=== PATIENT | female | born 1960 | race Caucasian/White ===

== ENCOUNTER 2025-08-21 17:22 | Emergency (ER) | payer BC, MEDICARE, SELFPAY ==
--- NOTE | 2025-08-21 17:25 | ED_ITS ---
HPI - Wound/Laceration General Chief Complaint: Animal Bite Stated Complaint: Cat Bite Time Seen by Provider: 08/21/25 17:24 Source: patient Mode of arrival: ambulatory Limitations: no limitations History of Present Illness HPI narrative: Patient is a 64-year-old female who presents with cat bite to right medial lower leg along with cat scratch to lateral lower leg. It happened at 6:00 a.m. today. Patient's cat was fighting with a neighbor cat and bit patient. Patient is not up-to-date on tetanus shot. Cat is up-to-date. Patient washed wound with soap and water Related Data Home Medications ?Medication ?Instructions ?Recorded ?Confirmed ?Last Taken ?Type amlodipine 5 mg tablet mg 08/21/25 Unknown History duloxetine 60 mg capsule,delayed mg PO 08/21/25 Unkno wn History release esomeprazole magnesium 40 mg mg 08/21/25 Unknown Hist ory capsule,delayed release fluticasone propionate 50 intranasal 08/21/25 Unknown History mcg/actuation nasal spray,suspension gabapentin 300 mg capsule mg 08/21/25 Unknown History pravastatin 40 mg tablet mg 08/21/25 Unknown History trazodone 100 mg tablet mg 08/21/25 Unknown History valsartan 320 mg tablet mg 08/21/25 Unknown History Allergies Allergy/AdvReac Type Severity Reaction Status Date / Time No Known Allergies Allergy Verified 08/21/25 17:47 Review of Systems 2 Review of Systems: All systems reviewed & are unremarkable except as noted in HPI and below Constitutional: Constitutional: Denies body ache(s), Denies chills, Denies fatigue, Denies fever(s), Denies headache(s), Denies malaise and Denies weakness Eyes: Eyes: Denies blurry vision, Denies irritation and Denies loss of vision ENT: Denies otalgia, Denies headache(s), Denies nasal discharge, Denies sinus pain and Denies sore throat Cardiovascular: Cardiovascular: Denies chest pain, Denies irregular heart rhythm and Denies dyspnea Respiratory: Respiratory: Denies dyspnea Gastrointestinal: Gastrointestinal: Denies abdominal pain, Denies melena, Denies hematochezia, Denies diarrhea, Denies nausea and Denies vomiting Musculoskeletal: Musculoskeletal: Denies back pain, Denies myalgias and Denies arthralgias Integumentary/Breasts: Skin/Breast: Denies pruritus, Denies rash and Reports wounds Neurologic: Denies headache(s), Denies loss of vision and Denies weakness Psychiatric: Psychiatric: Reports no additional psychiatric complaints Endocrine: Endocrine: Denies fatigue PMFSH Comments At time of signature, agree with nursing past medical, surgical, social and family history. There is no relevant family history pertinent to the presenting complaint. Exam 2 Const: General: cooperative, healthy appearing, comfortable, no acute distress and well nourished Nutritional Appearance: well nourished O rientation/consciousness: patient oriented x3 Limitations: no limitations HENMT: Head: normal to inspection, normocephalic and atraumatic Ears: h earing grossly normal bilaterally and external ears normal Face/Nose/Sinus: N ormal external nose present, normal facial exam and face symmetric Face and sinus: normal facial exam and face symmetric Mouth: Yes lip normal Eyes: General: appearance normal, both eyes and all related structures A lignment and Position: alignment normal and position normal Periorbital: p eriorbital findings normal Eyelids: eyelids normal Pupils: Equal, round and reactive pupils present EOM: EOMs intact bilaterally Neck: Neck: normal visual inspection, full ROM and supple Chest: Chest palpation & inspection: normal inspection of the chest Resp: Effort & Inspection: normal respiratory effort and able to speak in complete sentences Auscultation: clear to auscultation bilaterally Cardio: Rate: regular rate Rhythm: regular rhythm Heart sounds: S1 normal heart sound present and S2 normal heart sound present GI: Inspection: normal to inspection Skin: General skin exam: normal color and no rashes or lesions noted Full body images: 1. 10 cm scratch that is scabbed with no surrounding erythema 2. 4 puncture guadarrama from bite with no castillo rrounding erythema. one with a 2.5 cm abrasion Neuro: General: patient oriented x3 and moves all extremities Cranial nerves: Yes Equal, round and reactive pupils present Speech: normal speech Gait exam (Neuro): Normal gait present Extrem: General: normal to inspection, full ROM and no edema Psych: Appearance: grossly normal and well kempt Mental Status: mental status grossly normal Speech and movement: Normal speech and movement present Affect: normal affect Attitude: cooperative Thought process: Normal thought process present Course Course Emergency Course: Patient is aware of diagnosis, understands and agrees to treatment plan. Anticipatory guidance given. Patient agrees to follow-up as directed and is aware of reasons to seek care at the emergency department. Portions of this record may have been created with voice recognition software Level of Care: Express Care Visit Vital Signs Vital signs: Reviewed MDM - Wound/Laceration MDM Narrative Medical decision making narrative: Tetanus shot updated. Will cover with antibiotics Pt well hydrated appearing, in no respiratory distress, hemodynamically stable. Recommend supportive care. The patient is stable at time of discharge the clinical impression was discussed and the patient was given the opportunity to ask questions, which were addressed as completely as possible given the information available at present. Anticipatory guidance and return to care precautions were discussed and the importance of primary care follow-up was stressed and encouraged. The patient voiced understanding of the plan, indications to return, and the need for follow-up. Exam findings show no acute concerns or changes Patient is appropriate for outpatient treatment and follow-up. Differential Diagnosis Differential diagnosis: Likely laceration, abrasion and other (Cat bite) Discharge Plan Discharge Clinical Impression: Cat bite Patient Disposition: Home Condition: Stable Instructions: Diphtheria/Acellular Pertussis/Tetanus Booster Vaccine (By injection), Animal Bite (ED) Additional Instructions: Clean with soap and water only; Avoid using alcohol and peroxide. Keep covered during the day. Use Bactroban antibiotic daily. Elevate the affected area if possible Alternate Tylenol/ibuprofen for as needed for pain Acetaminophen(Tylenol) 650- 1000mg every 4-6hours with max of 4000mg/day. Nonsteroidal anti-inflammatory agent (NSAIDs-ibuprofen): 400mg every 4-6hours with max 2400mg/day Apply moist heat 3-4 times daily for 10-15 minutes. Take antibiotic until it's gone. Please schedule a follow up visit with your personal physician for further evaluation and treatment within 3-5days OR if your symptoms persist, change or worsen significantly before you can contact your personal physician then please, without delay, go to the emergency department for further evaluation. If you experience any worsening redness, swelling, streaking (red lines), fever or chills please go to the ER LYour blood pressure was elevated above 120/80 today at Urgent Care. This puts you above the threshold for follow up visit with a primary care provider. High blood pressure does not usually cause any symptoms, however it may lead to kidney failure, stroke, heart disease just to name a few if untreated . Many people are anxious when seeing a provider or nurse. As a result, you are not diagnosed with hypertension at this time unless your blood pressure is persistently high at two office visits at least one week apart. Some things that can help lower blood pressure are lifestyle modifications, such as light exercise, decreased salt in diet, and weight loss. It is important to follow up with a PCP about this within 1 week. Patient Language: Khmer Prescriptions: New mupirocin 2 % ointment 1 applic topical BID Qty: 15 0RF amoxicillin-pot clavulanate 875-125 mg tablet 1 tablet PO Q12H 10 Days Qty: 20 0RF No Action pravastatin 40 mg tablet amlodipine 5 mg tablet trazodone 100 mg tablet esomeprazole magnesium 40 mg capsule,delayed release(DR/EC) valsartan 320 mg tablet gabapentin 300 mg capsule fluticasone propionate 50 mcg/actuation spray,suspension INTRANASAL duloxetine 60 mg capsule,delayed release(DR/EC) PO Follow-up/Referrals: Lenard,Edd Mendoza Jr., MD [Primary Care Provider, Unknown] - 3 Days Time of Disposition: 17:51
[2025-08-21 17:39] VITALS: BP 155/91; PULSE 77; RESP 16; TEMP 36.1; O2SAT 94
[2025-08-21] MEDS: TETANUS,DIPHTHERIA,AC PERTUSSIS ADULT (0.5 ML) BOOSTRIX IM (17:52)
--- OUTSIDE RECORDS SUMMARY | 2025-08-21 18:00 | XMS_ITS | Clinical Summary ---
Author Organization [facility] Address [address] [place] [address] Phone Care Team Providers Care Shirt Folder Name Role Phone Zac Hughes DO Primary Care Provider [phone] Allergies No known active allergies Medications albuterol HFA 90 mcg inhaler Take 2 Puffs by inhalation every 6 hours as needed for Shortness of Breath. Active ALPRAZolam (XANAX) 1 mg tabletIndicatio ns:Anxiety state Take 1 Tablet (1 mg) by mouth 1 time daily as needed for Anxiety. 30 Tablet 9 Active lorcaserin (BELVIQ) 10 mg TabletIndicatio ns:Obesity (BMI 30.0-34.9) Take 10 mg by mouth 2 times daily. 60 Tablet 2 9 Active promethazine-ph enyleph-codeine (PHENERGAN VC w/COD) 6.25-5-10 mg/5 mL Syrup Take 5 mL by mouth every 6 hours as needed for Cough. 60 mL 9 Active valsartan-hydro CHLOROthiazide (DIOVAN HCT) 320-12.5 mg tablet TAKE 1 TABLET BY MOUTH EVERY DAY 90 Tablet 3 9 Active traMADol (ULTRAM) 50 mg tabletIndicatio ns:Lumbosacral disc herniation TAKE 1 TABLET BY MOUTH EVERY 4-6 HOURS NEEDED 60 Tablet 5 9 Active pravastatin (PRAVACHOL) 40 mg tablet TAKE 1 TABLET BY MOUTH EVERY DAY 90 Tablet 3 9 Active traZODone (DESYREL) 100 mg tablet TAKE 1 TABLET BY MOUTH AT BEDTIME 90 Tablet 2 9 Active pantoprazole (PROTONIX) 40 mg Tablet, Delayed Release (E.C.) TAKE 1 TABLET BY MOUTH EVERY DAY 30 Tablet 9 Active gabapentin (NEURONTIN) 600 mg tablet TAKE 1 TABLET BY MOUTH THREE TIMES A DAY 270 Tablet 1 9 Active azithromycin (ZITHROMAX) 250 mg tablet Take 2 tablets by mouth the first day and 1 tablet days 2-5. 6 Tablet 0 Active fluticasone propionate (FLONASE) 50 mcg/spray Wheeler, Suspension nasal inhaler Administer 1 Wheeler in each nostril daily. Needs Appointment Prior to next refill 48 mL 0 Active DULoxetine (CYMBALTA) 60 mg Capsule, Delayed Release(E.C.) Take 1 Capsule (60 mg) by mouth daily. Needs Appointment Prior to Next Refill 90 Capsule 0 Active Active Problems Problem Noted Date Diagnosed Date Essential hypertension, benign 01/03/2019 Lumbosacral disc herniation 03/25/2017 Mixed hyperlipidemia Depression Low back pain IBS (irritable bowel syndrome) Immunizations Immunization Administration Dates Next Due (ADACEL/BOOSTRIX)(10 YR UP) TDAP VACCINE, 0.5ML, IM 09/04/2016 (SHINGRIX)(50 YRS UP) ZOSTER VACCINE RECOMBINANT, 0.5 ML, IM 07/29/2020 INFLUENZA VACCINE QUADRIVALE NT 6 MOS UP CELL DERIVED IM 09/20/2018 INFLUENZA VACCINE QUADRIVALE NT 6 MOS UP CELL DERIVED PF IM 09/20/2019 INFLUENZA VACCINE QUADRIVALENT 6 MOS UP PF IM Influenza Seasonal Unspecified Formulation IM ,09/20/2018 Influenza Vaccine 18+ C.derived Pf Im 07/29/2020 Family History Medical History Relation Name Comments Healthy Brother Healthy Daughter Other Father Parkinson's Disease Father Breast Cancer Mother Diabetes Mother Heart Disease Mother Other Mother Breast Cancer Sister 1 Healthy Sister 2 Healthy Son Relation Name Status Comments Brother Alive Daughter Alive Father (Age 87) Mother (Age 69) Sister 1 Alive Sister 2 Alive Son Alive Social History Tobacco Use Types Packs/Day Years Used Date Smoking Tobacco: Never Alcohol Use Standard Drinks/Week Comments No 0 (1 standard drink = 0.6 oz pur e alcohol) Comments No Sex and Gender Information Value Date Recorded Sex Assigned at Not on file Legal Sex Female 1:39 PM CDT Gender Identity Not on file Sexual Orientation Not on file Last Filed Vital Signs Vital Sign Reading Time Taken Comments Blood Pressure 120/82 01/03/2019 3:41 PM CDT Pulse 72 01/03/2019 3:41 PM CDT Temperature 36.6 C (97.8 F) 03/25/2017 2:18 PM CDT Respiratory Rate 16 01/03/2019 3:41 PM CDT Oxygen Saturation 93% 03/25/2017 3:55 PM CDT Inhaled Oxygen Concentration - - Weight 82.1 kg (181 lb) 01/03/2019 3:41 PM CDT Height 165.1 cm (5' 5) 01/03/2019 3:41 PM CDT Body Mass Index 30.12 01/03/2019 3:41 PM CDT Plan of Treatment Health Maintenance Due Date Last Done Comments FIT-DNA Q 3 years 2003 FIT/FOBT Q 1 year 2003 Flex Sig/CT Colonography Q 5 years 2003 PNEUMOCOCCAL VACCINE 50+ YEA RS (1 of 1 - PCV) 2008 BREAST CANCER SCREENING 12/03/2019 12/03/2018 ZOSTER VACCINE (2 of 2) 09/23/2020 07/29/2020 OSTEOPOROSIS SCREENING 2023 INFLUENZA VACCINE (#1) 2025 0, 09/20/2019, 09/20/2019, Additional history exists DTAP/TDAP/TD VACCINES (2 - T d or Tdap) 09/04/2026 09/04/2016 COLORECTAL SCREENING 09/02/2028 09/02/2018, 09/02/20 18 Colorectal Cancer Screening 09/02/2028 RSV VACCINE (60+ or ) (1 - 1-dose 75+ series) 2033 Medical Devices Implanted Type Area Window Caser Device Identifier Shelf Expiration Date Model / Serial / Lot Barrier [id number] 09-0297-03 - [id number] Implanted:Qt y: 1 on 03/25/2017 by Lory Acuña MD at [facility] Adhesion Barrier Right: Spine Lumbar PFIZER- PHARM [id number] 03/24/2019 [id number] / / [id number] Sealant Floseal W/ Adptr 10ml [id number] - [id number] Implanted:Qt y: 1 on 03/25/2017 by Lory Acuña MD at [facility] Sealant Right: Spine Lumbar SNEED- BIOSCIENCE [id number] 05/24/2018 [id number] / / [id number] Back Description:[facility] K SURGERY Procedures Procedure Name Priority Date/Time Associated Diagnosis Comments MAMMO 3D LANRE SCREEN BILAT W OR WO CAD Routine 12/03/2018 10:10 AM UPHOLSTERER INSIDE Visit for screening mammogram COLONOSCOPY REPORT Routine 09/02/2018 from Last 3 Months or Most Recently Relevant to Health Maintenance Results * MAMMO SCRN BILAT 3D LANRE W OR WO CAD (12/03/2018 10:10 AM UPHOLSTERER INSIDE) Anatomical Region Laterality Modality Breast Bilateral Mammography 12/03/2018 10:1 1 AM UPHOLSTERER INSIDE Impressions 12/05/2018 10:14 AM UPHOLSTERER INSIDE IMPRESSION: No mammographic evidence of malignancy. RECOMMENDATIONS: Routine screening mammogram in one year. DICTATION LOCATION: [facility] Narrative 12/05/2018 10:14 AM UPHOLSTERER INSIDE BILATERAL FULL-FIELD DIGITAL SCREENING MAMMOGRAM WITH CAD WITH 3D TOMOSYNTHESIS DATE: 12/03/2018 10:10 AM HISTORY: Routine screening. TECHNIQUE: Full-field digital craniocaudal and mediolateral oblique projections of both breasts were obtained. Low-dose full-field digital breast tomosynthesis examination was performed with 2D and 3D acquisitions. Examination is read in conjunction with computer aided detection. COMPARISON: 09/2017, 08/2016. BREAST COMPOSITION: Scattered fibroglandular densities. FINDINGS: There are a few scattered benign microcalcifications. There is a stable nodule/asymmetry within the upper-outer quadrant of the left breast. There are benign-appearing axillary lymph nodes. The parenchymal pattern is stable. No suspicious mass, suspicious microcalcifications, or architectural distortion in either breast is identified. Since the prior study, there has been no significant interval change. The computer aided diagnosis detects no significant abnormality. OVERALL ASSESSMENT: BI-RADS Category 2 - Benign findings. Procedure Note Akash Bhatia MD - 12/05/2018 BILATERAL FULL-FIELD DIGITAL SCREENING MAMMOGRAM WITH CAD WITH 3D TOMOSYNTHESIS DATE: 12/03/2018 10:10 AM HISTORY: Routine screening. TECHNIQUE: Full-field digital craniocaudal and mediolateral oblique projections of both breasts were obtained. Low-dose full-field digital breast tomosynthesis examination was performed with 2D and 3D acquisitions. Examination is read in conjunction with computer aided detection. COMPARISON: 09/2017, 08/2016. BREAST COMPOSITION: Scattered fibroglandular densities. FINDINGS: There are a few scattered benign microcalcifications. There is a stable nodule/asymmetry within the upper-outer quadrant of the left breast. There are benign-appearing axillary lymph nodes. The parenchymal pattern is stable. No suspicious mass, suspicious microcalcifications, or architectural distortion in either breast is identified. Since the prior study, there has been no significant interval change. The computer aided diagnosis detects no significant abnormality. OVERALL ASSESSMENT: BI-RADS Category 2 - Benign findings. IMPRESSION: No mammographic evidence of malignancy. RECOMMENDATIONS: Routine screening mammogram in one year. DICTATION LOCATION: [facility] us Gareth Duarte MD MAMMO ORDERABLES Final Res ult * COLONOSCOPY REPORT (09/02/2018) us Deyanira Webb MD GI PROCEDURE ORDERABLES nal Result [facility] [address] CLIA# [id number] [address] [place] [address] from Last 3 Months or Most Recently Relevant to Health Maintenance Insurance BCBS BLUE ACCESS/TRUE BLUE PPO RX [place] Commercial Advance Directives For more information, please contact: [phone] * Full Code (Latest Code Status on File) Date Activated Date Inactivated Comments 03/25/2017 8:37 AM 03/25/2017 6:37 PM * Full Code Date Activated Date Inactivated Comments 03/25/2017 7:49 AM 03/25/2017 8:37 AM Care Teams Shirt Folder Relationship Specialty Start Date End Date Zac Hughes DO PCP - General Family Practice 03/19/17
--- OUTSIDE RECORDS SUMMARY | 2025-08-21 18:00 | XMS_ITS | Clinical Summary ---
Author Organization [facility] Address [address] [place] [address] Care Team Providers Care Physician Liaison Name Role Phone Unavailable Primary Care Provider Unavailabl e Source Comments [facility],non-owned Affiliates and Associated Physician Practices is amultiple site organization consisting of ambulatory clinics and hospital sitesin [place], [place], [place] and [place]. This disclosure is being madepursuant to the Care Everywhere program and may not contain all information available regarding this patient. Last updated 18.[facility] Social History Tobacco Use Types Packs/Day Years Used Date Smoking Tobacco: Never Assessed Comments Unknown Sex and Gender Information Value Date Recorded Sex Assigned at Not on file Legal Sex Female 4:42 PM CDT Gender Identity Not on file Sexual Orientation Not on file Plan of Treatment Health Maintenance Due Date Last Done Comments BONE DENSITY TESTING 1958 COLOGUARD (AGES 45-75) - COL ON CA SCREENING 1958 COLON MONITORING 1958 COLONOSCOPY - COLON CA SCREENING 1958 CT COLONOGRAPHY - COLON CA SCREENING 1958 Colorectal Cancer Screening 1958 FIT - COLON CA SCREENING 1958 FLEX SIG - COLON CA SCREENING 1958 LIPID TESTING 1958 MAMMOGRAM 1958 HEPATITIS C SCREENING 09/25/1976 DTAP/TDAP/TD VACCINES (1 - Tdap) 1977 PNEUMOCOCCAL VACCINE 50+ (1 of 1 - PCV) 2008 ZOSTER VACCINE (1 of 2) 2008 DEPRESSION SCREENING 10/25/2024 COVID-19 VACCINE (1 - 2023-2 5 season) 2025 INFLUENZA VACCINE (#1) 2025 Respiratory Syncytial Virus (RSV) Vaccine Pt: or over 60 yrs (1 - 1-dose 75+ series) 2033 HEPATITIS B VACCINE Aged Out No longe r eligible based on patient's age to complete this topic HIB VACCINE Aged Out No longer eligi ble based on patient's age to complete this topic HPV VACCINE Aged Out No longer eligi ble based on patient's age to complete this topic MENINGOCOCCAL (Group B) VACC INE SHARED DECISION-MAKING Aged Out No longer eligibl e based on patient's age to complete this topic MENINGOCOCCAL GROUPS A/C/Y/W VACCINE Aged Out No longer eligible b ased on patient's age to complete this topic Insurance [employer]
--- OUTSIDE RECORDS SUMMARY | 2025-08-21 18:00 | XMS_ITS | Patient Health Record ---
Author Organization [facility] Address [address] [place] [address] Care Team Providers Care Family Partner Name Role Phone Zac Hughes MD Primary Care Provider Todd martin Tino Shin Unavailable [phone] Reason For Referral No Information Medications Medication SIG (Take, Route, Frequency, Duration) Notes Start Date End Date Status Cyclobenzaprine HCl 10 MG TAKE 1 TABLET EVERY 4 TO 6 HOURS NEEDED FOR PAIN; Duration: 30 Active traMADol HCl 50 MG 1 tablet as needed O rally Every 8 hours Active Cymbalta Active Gabapentin Active Social History Tobacco Use: Social History Observation Description Date Details (start date - stop date) Never Smoker NA - NA Tobacco Use/Smoking Question Answer Notes Are you a nonsmoker Tobacco use other than smoking: Question Answer Notes Are you an other tobacco user? No Problems Problem Type SNOMED Code ICD Code Onset Dates Problem Status W/U Status Risk Notes Problem Solitary sacroiliitis (340699928) Sacroiliitis, not elsewhere classified (M46.1) Active confirmed Problem Lumbosacral spondylosis without myelopathy (43202136) Spondylosis without myelopathy or radiculopathy, lumbar region (M47.816) Active confirmed Problem Degeneration of lumbar intervertebral disc (34510859) Other intervertebral disc degeneration, lumbar region (M51.36) Active confirmed Problem Lumbar radiculopathy (634670359) Radiculopathy, lumbar region (M54.16) Active confirmed Problem Post-laminectomy syndrome (87881711) Postlaminectomy syndrome, not elsewhere classified (M96.1) Active confirmed Plan Of Treatment Pending Test Test Name Order Date MRI : Lumbosacral spine with and without contrast 12/08/2016 Insurance Providers Payer Name Payer Address Payer Phone Subscriber Number Group Number Insured Name Patient Relationship to Insured Coverage Start Date Coverage End Date [employer] [facility] [address] [place] [address] [id number] Gloria Muniz Self - patient is the insured Medical (General) History Medical History History ICD Code high blood presure Surgical History Surgery Date(Month/Year) 2010 fusion l4-5 2011
--- OUTSIDE RECORDS SUMMARY | 2025-08-21 18:00 | XMS_ITS | Clinical Summary ---
Author Organization [facility] Address [address] [place] [address] Care Team Providers Care Operations Administrative Assistant Name Role Phone Lenard Coleman MD, Edd Jurado Primary Care Pro vider Allergies No known active allergies Medications gabapentin 600 MG tablet Take 1 tablet by mouth 3 (three) times daily. 02/19/2021 Active pravastatin 40 MG tablet Take 1 tablet by mouth daily. 03/06/2021 Active traZODone 100 MG tablet Take 100 mg by mouth daily. 09/11/2020 Active valsartan-hydro CHLOROthiazide 320-12.5 MG tablet Take 1 tablet by mouth daily. 09/11/2020 Active DULoxetine 60 MG capsule Take 60 mg by mouth daily. 01/30/2021 Active Cholecalciferol 50 MCG (2000 UT) Tab Take 2,000 Units by mouth daily. Active Cyanocobalamin [address] 1 tablet under the tongue daily. Active fluticasone propionate 50 MCG/ACT nasal spray SPRAY 1 SPRAY INTO EACH NOSTRIL EVERY DAY 05/14/2021 Active AMLODIPINE 10 MG tablet TAKE 1 TABLET BY MOUTH EVERY DAY 90 tablet 2 10/07/2021 Active Active Problems Problem Noted Date Diagnosed Date FREEMAN (dyspnea on exertion) 03/12/2021 Chest pressure 03/12/2021 Abnormal ECG 03/11/2021 Essential hypertension 03/11/2021 Dyslipidemia Hypertension Immunizations Immunization Administration Dates Next Due MODERNA COVID-19 (12+) MRNA, LNP-S, PF, 100 MCG/ 0.5 ML DOSE 12/13/2020,11/15/2020 Family History Medical History Relation Comments Diabetes Brother Hypertension Father bph Father Heart Maternal Aunt Heart Attack Maternal Grandmother Heart Maternal Uncle 1 Early Maternal Uncle 2 Breast Cancer Mother Diabetes Mother Heart Attack Mother Open Heart Mother Breast Cancer Sister 1 x2 Diabetes Sister 1 Stent Cardiac Sister 1 thyroid cancer Sister 1 syncope Sister 2 Relation Status Comments Brother Alive Father (Age 87) Maternal Aunt Maternal Grandmother (Age 70's) Maternal Uncle 1 Maternal Uncle 2 Mother (Age 69) Sister 1 Alive Sister 2 Alive Social History Tobacco Use Types Packs/Day Years Used Date Smoking Tobacco: Never Smokeless Tobacco: Never Alcohol Use Standard Drinks/Week Comments Yes 0 (1 standard drink = 0.6 oz pur e alcohol) 2 drinks/week Comments Unknown Sex and Gender Information Value Date Recorded Sex Assigned at Not on file Legal Sex Female 7:14 PM CDT Gender Identity Not on file Sexual Orientation Not on file Occupation Industry Job Start Date Job End Date RN Not on file Not on file Not on file Last Filed Vital Signs Vital Sign Reading Time Taken Comments Blood Pressure 126/80 06/18/2021 11:02 AM CDT Pulse 76 06/18/2021 11:02 AM CDT Temperature - - Respiratory Rate - - Oxygen Saturation 96% 06/18/2021 11:02 AM CDT Inhaled Oxygen Concentration - - Weight 85.3 kg (188 lb) 06/18/2021 11:02 AM CDT Height 165.1 cm (5' 5) 06/18/2021 11:02 AM CDT Body Mass Index 31.28 06/18/2021 11:02 AM CDT Plan of Treatment Health Maintenance Due Date Last Done Comments Colorectal Cancer Screening Colonoscopy (10 Years) 1958 Hepatitis C 1976 Mammogram Screening 1998 Pneumococcal Vaccine: 50+ Years (1 of 1 - PCV) 2008 Dexa Scan (General) 2023 COVID-19 Vaccine ( - season) 2025 12/13/2020, 11/15/2020 Influenza Adult (#1) 2025 07/29/2020, 09/20/2019, 09/20/2018, Additional history exists DTaP, Tdap and Td Vaccines (2 - Td or Tdap) 09/04/2026 09/04/2016 RSV Immunization or 60+ Years (1 - 1-dose 75+ series) 2033 Zoster Vaccines Completed 11/06/2020, 07/29/2020 Hepatitis A Vaccines Aged Out No long er eligible based on patient's age to complete this topic Meningococcal B Vaccine Aged Out No l onger eligible based on patient's age to complete this topic Meningococcal Vaccine Aged Out No kurt jhonny eligible based on patient's age to complete this topic RSV Immunizations Under 20 Months Aged Out No longer eligible based on patient's age to complete this topic Insurance [facility] Care Teams Operations Administrative Assistant Relationship Specialty Start Date End Date Edd Weinberg Jr., MD PCP - General HOSPITALIST 02/24/21
--- OUTSIDE RECORDS SUMMARY | 2025-08-21 18:00 | XMS_ITS | Patient Health Record ---
Author Organization [facility] Address [address] [place], [place] [id number] Care Team Providers Care Double Needle Operator Name Role Phone MorganNHUNG kearney Unavailable [phone] Edd Weinberg Unavailable Unavailable Reason For Referral No Information Social History Social History Additional Details Category Social Info Options Details Migrated Social History Migrated Social History History of tobacco use : , Smoking Status : Never used tobacco , Alcohol intake : Plan Of Treatment No Information Insurance Providers Payer Name Payer Address Payer Phone Subscriber Number Group Number Insured Name Patient Relationship to Insured Coverage Start Date Coverage End Date [facility] ([facility]) ATTN CLAIMS [address] [place] [address] [id number] EDD CADENA Spouse - patient is the spouse of the insured
--- OUTSIDE RECORDS SUMMARY | 2025-08-21 18:00 | XMS_ITS | Encounter Summary ---
Author Organization [facility] Address [address] [address] Care Team Providers Care Laboratory Chemical Assistant Name Role Phone Unavailable Primary Care Provider Unavailabl e Encounter Details Date Type Department Care Team (Late st Contact Info) Description 08/03/2020 Lab Requisition [facility] [address] [place] [phone] Harjit Gore MD [address] [place] [address] Social History Tobacco Use Types Packs/Day Years Used Date Smoking Tobacco: Never Assessed Comments Unknown Sex and Gender Information Value Date Recorded Sex Assigned at Not on file Legal Sex Female 4:42 PM CDT Gender Identity Not on file Sexual Orientation Not on file documented as of this encounter Plan of Treatment Not on file documented as of this encounter Visit Diagnoses Not on filedocumented in this encounter
--- OUTSIDE RECORDS SUMMARY | 2025-08-21 18:00 | XMS_ITS | Encounter Summary ---
Author Organization [facility] Address [address] [place] [address] Care Team Providers Care Marine Photographer Name Role Phone Unavailable Primary Care Provider Unavailabl e Encounter Details Date Type Department Care Team (Late st Contact Info) Description 08/03/2020 Lab Requisition [facility] [address] [place] [phone] Harjit Gore MD [address] [place] [address] Social History Tobacco Use Types Packs/Day Years Used Date Smoking Tobacco: Never Assessed Comments Unknown Sex and Gender Information Value Date Recorded Sex Assigned at Not on file Legal Sex Female 4:42 PM CDT Gender Identity Not on file Sexual Orientation Not on file documented as of this encounter Plan of Treatment Not on file documented as of this encounter Procedures Procedure Name Priority Date/Time Associated Diagnosis Comments DERMATOPATHOLOGY Routine 08/01/2020 12:0 0 AM CDT documented in this encounter Results * DERMATOPATHOLOGY (08/01/2020 12:00 AM CDT) Case Report Dermatopathology Report Case: [id number] Authorizing Provider: Harjit Gore MD Collected: 08/01/2020 12:00 AM Ordering Location: [facility] Received: 08/03/2020 10:36 AM Pathologist: Katherine Lerner MD Specimen: Skin, right medial leg 0 12:19 PM CDT DERMATOPATHOLOGY LABORATORY Final Diagnosis Specimen A. SKIN, right medial leg: DERMATOFIBROMA (D23.9) 0 12:19 PM CDT DERMATOPATHOLOGY LABORATORY at 1219 CDT Clinical History DF R/O atypia. Path#[id number]. 0 12:19 PM CDT DERMATOPATHOLOGY LABORATORY Gross Description Specimen A: Received is one formalin filled container labeled with the patient's name and designated right medial leg. The specimen consists of a shave biopsy measuring 8x7x3 mm. Jar 0. 0 12:19 PM CDT DERMATOPATHOLOGY LABORATORY Microscopic Description Specimen A. SKIN, right medial leg: There is epidermal hyperplasia. Within the dermis, there are fibrohistiocytic cells in haphazard array among coarse collagen bundles. 0 12:19 PM CDT DERMATOPATHOLOGY LABORATORY Disclaimer An external and internal positive and negative controls are appropriate for the histochemical, immunohistochemical and immunofluorescence stain(s) in this case (if any), except where stated explicitly. The performance characteristics of the stain(s) cited in this report were developed and its performance characteristic determined by the Dermatopathology Laboratory at [facility], directed by Dr. Gisella Lerner. These tests need not be, and therefore are not, approved by the [place] Food and Drug Administration. The tests are used for clinical purposes. Billing Codes Specimen Charges Stain Charges 84862 1 0 12:19 PM CDT DERMATOPATHOLOGY LABORATORY Embedded Images 0 12:19 PM CDT DERMATOPATHOLOGY LABORATORY Pathology/Cytolog y TISSUE SPECIMEN FROM SKIN / Unknown 08/01/2020 08/03/2020 10:36 AM CDT us Harjit Gore MD LAB - PATHOLOGY/CYTOLOGY ORDER ROBBIE Final Result DERMATOPATHOLOGY LABORATORY [facility] - Department of Dermatology [address] [place] [address], [facility] [phone] documented in this encounter Visit Diagnoses Not on filedocumented in this encounter
== END 2025-08-21 18:00 | disposition home or self-care (01) ==
PROVIDERS: Emergency Provider Nurse Practitioner Family; PCP Hospitalist
DX: S81.831A Puncture wound without foreign body, right lower leg, initial encounter (principal); S80.811A Abrasion, right lower leg, initial encounter; W55.01XA Bitten by cat, initial encounter; Z23 Encounter for immunization; I10 Essential (primary) hypertension; E78.00 Pure hypercholesterolemia, unspecified; K21.9 Gastro-esophageal reflux disease without esophagitis; M19.90 Unspecified osteoarthritis, unspecified site; F32.A Depression, unspecified
CPT/HCPCS: 90471; 90715; 99213; G0463